=== PATIENT | male | born 1990 | race Caucasian/White ===

== ENCOUNTER 2020-11-01 12:49 | Emergency (ER) | payer MEDICAID ==
[~2020-11-01] VITALS: Ht 180.3 cm; Wt 102.1 kg
[2020-11-01 12:56] VITALS: BP 134/73
--- NOTE | 2020-11-01 13:03 | NUR ---
Patient ambulated to bed 5. RN evaluating the patient at bedside.
[2020-11-01] MEDS ORDERED: KETOROLAC 60 MG/2 ML VIAL IM ONE (13:15)
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
--- NOTE | 2020-11-01 13:30 | NUR ---
Patient refused Toradol IM injection. Dr. Ann made aware.
--- NOTE | 2020-11-01 13:35 | NUR ---
Patient states he is unable to urinate at this time. Urinal placed at bedside.
[2020-11-01 13:36] LABS: BASOPHILS # (AUTO) 0.1 K/uL (0.00-0.22); BASOPHILS % (AUTO) 1.4 % (0.0-2.0); EOSINOPHILS # (AUTO) 0.4 K/uL (0-0.4); EOSINOPHILS % (AUTO) 4.9 % (0.0-4.0); HEMATOCRIT 44.8 % (36-52); LYMPHOCYTES # (AUTO) 2.4 K/uL (2.0-11.5); MEAN CORPUSCULAR HEMOGLOBIN 29 pg (27-31); MEAN CORPUSCULAR HGB CONC 34 g/dL (33-37); MEAN CORPUSCULAR VOLUME 86.6 fL (80-94); MONOCYTES # (AUTO) 0.5 K/uL (0.8-1.0); MONOCYTES % (AUTO) 5.5 % (1.7-9.3); NEUTROPHILS # (AUTO) 5.1 K/uL (1.8-7.7); NEUTROPHILS % (AUTO) 60.2 % (42.2-75.2); PLATELET COUNT (AUTO) 367 K/uL (140-450); RED BLOOD CELL COUNT(AUTO) 5.17 MIL/uL (4.20-6.10); RED CELL DISTRIBUTION WIDTH 14.1 % (11.6-13.7); WHITE BLOOD COUNT (AUTO) 8.4 K/uL (4.8-10.8)
[2020-11-01 13:50] LABS: ALBUMIN 3.5 g/dL (3.4-5.0); ANION GAP 13.3 (8-16); ASPARTATE AMINOTRANSFERASE 16 U/L (15-37); CARBON DIOXIDE 26.9 mmol/L (21-32); CHLORIDE 102 mmol/L (98-107); CREATININE 0.9 mg/dL (0.6-1.3); GFR ARICAN-AMERICAN 126 mL/min (>90); GLUCOSE 114 mg/dL (74-106); POTASSIUM 4.2 mmol/L (3.5-5.1); SODIUM SERUM 138 mmol/L (136-145); TOTAL BILIRUBIN 0.3 mg/dL (0.0-1.0); UREA NITROGEN, BLOOD 15 mg/dL (7-18)
[2020-11-01 13:51] LABS: ACETAMINOPHEN < 0.5 ug/ml (10-30); SALICYLATE < 2.8 mg/dL (2.8-20.0)
--- NOTE | 2020-11-01 13:55 | NUR ---
Urine sample collected, walked to lab and handed to brat Ryan tech.
--- NOTE | 2020-11-01 14:02 | NUR ---
Dr. Gaviria is evaluating the patient at bedside.
--- NOTE | 2020-11-01 14:10 | NUR ---
Patient presents with both eyes awake. All pt needs met at this time. Respirations even/unlabored. Bed locked in lowest position, side rails x 1.
[2020-11-01 14:12] LABS: APPEARANCE,URINE CLEAR (CLEAR); BILIRUBIN,URINE NEGATIVE (NEGATIVE); BLOOD, URINE NEGATIVE (NEGATIVE); COLOR,URINE YELLOW (YELLOW); LEUKOCYTE ESTERASE ,URINE NEGATIVE (NEGATIVE); NITRITE, URINE NEGATIVE (NEGATIVE); UGLUCOSE NEGATIVE (NEGATIVE)
[2020-11-01 14:20] LABS: BARBITURATE, URINE NEGATIVE ng/ml (NEG <=200); BENZODIAZEPINE, URINE NEGATIVE ng/mL (NEG <=200); CANNABINOID, URINE NEGATIVE ng/mL (NEG <=50); COCAINE, URINE NEGATIVE ng/mL (NEG <=300); OPIATE, URINE POSITIVE ng/mL (NEG <=2000); PHENCYCLIDINE SCREEN,URINE NEGATIVE ng/mL (NEG <=25)
--- NOTE | 2020-11-01 14:31 | NUR ---
Patient accompanied by EMT plate grainer.
--- NOTE | 2020-11-01 14:31 | NUR ---
Patient taken to x-ray via wheelchair by tech.
--- NOTE | 2020-11-01 14:46 | NUR ---
Patient returned from x-ray. RN reevaluating the patient at bedside.
--- NOTE | 2020-11-01 14:58 | NUR ---
Dr. Ann is evaluating the patient at bedside.
--- NOTE | 2020-11-01 15:04 | NUR ---
Gretchen ashton and mando collected, walked to lab and handed to Prosper brick and blocker aid labor.
--- NOTE | 2020-11-01 15:07 | NUR ---
PT STATES HE HAS $2,000 [place] IN [place]. 2RN WITNESSES.
--- NOTE | 2020-11-01 15:15 | NUR ---
Patient presents upright in semi-fowlers position. No distress noted; respirations even/unlabored. Pt requested meal tray and advised of orders placed. Bed locked in lowest position, side rails x 1. All pt needs met at this time.
--- NOTE | 2020-11-01 15:58 | NUR ---
Ham sandwich, cup water provided to patient. Pt completing meal; all pt needs met at this time.
--- NOTE | 2020-11-01 16:15 | NUR ---
Patient presents with both eyes closed. Respirations even/unlabored. Equal chest rise and fall. Bed locked in lowest position, side rails x 1.
--- NOTE | 2020-11-01 16:18 | NUR ---
Security and admitting staff at bedside.
--- NOTE | 2020-11-01 17:10 | NUR ---
[place] provided per pt request. Pt lying in semi-fowlers position. Bed locked in lowest position, side rails x1.
[2020-11-01] MEDS ORDERED: HYDROcodone/APAP 5/325 MG 1 TAB TAB PO ONE (17:45)
--- NOTE | 2020-11-01 17:50 | NUR ---
Dinner tray provided at bedside. Patient completing meal at this time.
--- NOTE | 2020-11-01 18:45 | NUR ---
Patient resting awake, states pain 2/10 after [place]. Bed locked in lowest position, side rails x 2. Respirations even/unlabored.
--- NOTE | 2020-11-01 19:15 | NUR ---
Report and transfer of care given to SWAPNIL Crocker.
--- NOTE | 2020-11-01 19:20 | NUR ---
Patient appears to be resting comfortably in bed. Vital Signs within normal limits. Respirations even and unlabored. RECIEVED REPORT FROM DALJIT KRAFT.
--- NOTE | 2020-11-01 20:17 | NUR ---
Pt sitting up in bed, acting calm and cooperative . Provided sandwich and juices at this time.
[2020-11-01] MEDS ORDERED: QUEtiapine FUMARATE 100 MG TAB PO SCH (21:10)
[2020-11-01] MEDS ORDERED: traZODone 50 MG TAB PO SCH (21:10)
--- NOTE | 2020-11-01 21:27 | NUR ---
pt ambulated to restroom w/ steady gait.
--- NOTE | 2020-11-01 23:00 | NUR ---
PT SLEEPING IN BED, AUBILE SNORING HEARD. VISIBLE RISE AND FALL OF CHEST. VSS. NO ACUTE DISTRESS NOTED.
--- NOTE | 2020-11-02 01:00 | NUR ---
PT LAYING SUPINE IN BED, LOCKED AND IN LOWEST POSITION, HOB ELEVATED, SIDE RAIL X2 . VISIBLE RISE AND FALL OF CHEST. RR EVEN AND UNLABORED. AUDIBLE SNORING HEARD FROM PT. VSS. NO ACUTE DISTRESS NOTED. SI PRECAUTIONS IN PLACE.
--- NOTE | 2020-11-02 03:02 | NUR ---
PT RESTING W/ EYES CLOSED. VISIBLE RISE AND FALL OF CHEST. VSS. NO ACUTE DISTRESS NOTED.
--- NOTE | 2020-11-02 05:05 | NUR ---
Patient appears to be resting comfortably in bed. Vital Signs within normal limits. Respirations even and unlabored.
--- NOTE | 2020-11-02 07:09 | NUR ---
Report and continuation of care received from SWAPNIL Crocker.
--- NOTE | 2020-11-02 07:11 | NUR ---
Patient presents with both eyes closed in semi-fowlers position. Respirations even/unlabored, equal chest rise and fall. Bed locked in lowest position, side rails x 1.
--- NOTE | 2020-11-02 07:36 | NUR ---
Received intake and confirmed with [facility]. Intake was faxed to [facility] for consideration of placement
--- NOTE | 2020-11-02 08:33 | NUR ---
Patient presents with both eyes closed in semi-fowlers position. Respirations even/unlabored, equal chest rise and fall. Bed locked in lowest position, side rails x 1.
--- NOTE | 2020-11-02 09:35 | NUR ---
Patient resting with both eyes closed. Vital signs within normal limits. Resiprations even/unlabored. Bed locked in lowest position, side rails x 1.
--- NOTE | 2020-11-02 10:25 | NUR ---
Patient has both eyes closed in position of comfort. All pt needs met at this time. Respirations even/unlabored; equal chest rise and fall. Bed locked in lowest position, side rails x 1.
--- NOTE | 2020-11-02 11:06 | NUR ---
Patient resting with both eyes closed. Pt completed 90% of breakfast meal tray. Resiprations even/unlabored. Bed locked in lowest position, side rails x 1.
--- NOTE | 2020-11-02 11:59 | NUR ---
Patient is requesting pain medication at this time. Dr. Ann made aware and orders placed.
[2020-11-02] MEDS ORDERED: HYDROcodone/APAP 5/325 MG 1 TAB TAB PO ONE ×2 (12:05→13:20)
--- NOTE | 2020-11-02 13:04 | NUR ---
CALLED [facility] TO GIVE REPORT, STATED THEY WOULD RETURN CALL IN 15 MIN
--- NOTE | 2020-11-02 13:29 | NUR ---
REPORT GIVEN TO SWAPNIL HAMPTON AT [facility]. [facility] AT BEDSIDE FOR TRANSPORT OF PATIENT
--- NOTE | 2020-11-02 13:30 | NUR ---
[facility] crew at bedside. Transport pending Imaging disk from RAD.
[2020-11-02 13:35] VITALS: BP 138/81
--- NOTE | 2020-11-02 13:35 | NUR ---
Patient to be transferred to [facility] [place]. Is being transferred due to continuation of care (psych facility). Receiving facility has accepting physician and available space. ER physician has signed transfer form. Patient or responsible democrat has agreed to transfer and signed form. Patient belongings inventoried and will be sent with patient. Copy of nursing notes, lab reports, EKG, Physicians Orders and X-rays to be sent with patient. Report called to SWAPNIL Castaneda at receiving facility. [facility] ambulance service has been called for transfer. ETA is 1330.
[2020-11-02] MEDS ORDERED: QUEtiapine FUMARATE 100 MG TAB PO SCH (20:00)
[2020-11-02] MEDS ORDERED: traZODone 50 MG TAB PO SCH (21:00)
== END 2020-11-02 13:54 | disposition home or self-care (01) ==
LOC: MED 12:49
DX: S22.9XXA Fracture of bony thorax, part unspecified, initial encounter for closed fracture (principal); Z20.822 Contact with and (suspected) exposure to COVID-19; S42.032A Displaced fracture of lateral end of left clavicle, initial encounter for closed fracture; R45.851 Suicidal ideations; J45.909 Unspecified asthma, uncomplicated; I10 Essential (primary) hypertension; F17.200 Nicotine dependence, unspecified, uncomplicated; V49.9XXA Car occupant (driver) (passenger) injured in unspecified traffic accident, initial encounter; Y93.89 Activity, other specified; Y92.89 Other specified places as the place of occurrence of the external cause; Y99.8 Other external cause status
CPT/HCPCS: 36415; 71101; 73000; 80053; 80305; 81003; 85025; 87426; 99285; G0480; G0482; U0003

== ENCOUNTER 2021-04-13 04:00 | Emergency (ER) | payer MEDICAID ==
[~2021-04-13] VITALS: Ht 177.8 cm; Wt 103.0 kg
[2021-04-13 04:00] VITALS: BP 136/81
--- NOTE | 2021-04-13 04:00 | NUR ---
PT AMBULATED FROM AMBULANCE TO CHAIR A.
[2021-04-13] MEDS ORDERED: HALOPERIDOL IM 5 MG/ML VIAL IM ONE (04:15)
[2021-04-13] MEDS ORDERED: diphenhydrAMINE 50 MG/ML VIAL IM ONE (04:15)
[2021-04-13] MEDS ORDERED: LORazepam 2 MG/ML VIAL IM ONE (04:15)
--- NOTE | 2021-04-13 04:26 | NUR ---
PT DECLINED SITTING IN CHAIR A AND LOBBY. EXPLAINED HE CANNOT WALK AROUND HALLWAY BETWEEN TRIAGE ROOM AND ADMITTING. VERBALIZED UNDERSTANDING. EXPLAINED HE DOES NOT WANT TO BE D/C'D UNTIL HE RECIEVES "SEROQUEL."
[2021-04-13] MEDS ORDERED: QUET200T PO (05:04)
--- NOTE | 2021-04-13 05:08 | NUR ---
PT PHYSICALLY AGGRESSIVE WITH DR. BAKER AND THREW CHAIR ONTO FLOOR. SECURITY CALLED AT THIS TIME.
[2021-04-13] MEDS ORDERED: QUEtiapine FUMARATE 25 MG TAB ONE (05:10)
[2021-04-13] MEDS ORDERED: QUEtiapine FUMARATE 100 MG TAB PO ONE (05:10)
--- NOTE | 2021-04-13 05:10 | NUR ---
PT REFUSING DISCHARGE INFORMATION AND MEDICATION. SECURITY HERE TO ESCORT PT OUT OF ER. PT CONTINUES TO BE PHYSICALLY AND VERBALLY ABUSIVE.
--- NOTE | 2021-04-13 05:14 | NUR ---
CONTACTED [employer], WILL BE SENDING OUT OFFICER.
== END 2021-04-13 05:10 | disposition home or self-care (01) ==
LOC: MED 04:00
DX: F15.129 Other stimulant abuse with intoxication, unspecified (principal); F20.9 Schizophrenia, unspecified; J45.909 Unspecified asthma, uncomplicated; I10 Essential (primary) hypertension; F17.210 Nicotine dependence, cigarettes, uncomplicated; Z88.0 Allergy status to penicillin; Z79.899 Other long term (current) drug therapy
CPT/HCPCS: 99283